=== PATIENT | male | born 1950 | race Two or more races ===

== ENCOUNTER → 2020-10-11 | Outpatient (CLI) | payer MEDICARE | END | disposition home or self-care (01) | LOC: CVU 07:29 | PROVIDERS: ATTEND Internal Medicine Cardiovascular Disease | DX: I08.8 Other rheumatic multiple valve diseases (principal); I25.10 Atherosclerotic heart disease of native coronary artery without angina pectoris; R00.2 Palpitations; R01.1 Cardiac murmur, unspecified | CPT/HCPCS: 75571; 93306; 93356 ==

== ENCOUNTER → 2020-12-13 | Outpatient (CLI) | payer MEDICARE ==
[~2020-12-13] MED LIST: ALLO300T PO; AMLO-211 PO; LOSA100T14 PO; METF500T27 PO; ROSU10TA2 PO
== END | disposition home or self-care (01) ==
LOC: STAR 13:26
PROVIDERS: ATTEND Thoracic Surgery (Cardiothoracic Vascular Surgery)
DX: Z20.822 Contact with and (suspected) exposure to COVID-19 (principal)
CPT/HCPCS: U0003; U0005

== ENCOUNTER → 2021-02-23 | Outpatient (CLI) | payer MEDICARE ==
[~2021-02-23] MED LIST changes: +AMIO200T42 PO; +APIX5TAB PO; +ASPI81TA45 PO; +COLC0.6C3 PO; +DIPH25CA26 PO; +DOCU-131 PO; +GABA300C PO; +INSU100I11 SQ-INSULIN; +METO25TA35 PO; +OMEP-110 PO; +OXYC5TAB98 PO
== END | disposition home or self-care (01) ==
LOC: CVU 15:26
PROVIDERS: ATTEND Registered Nurse
DX: I08.8 Other rheumatic multiple valve diseases (principal); I10 Essential (primary) hypertension
CPT/HCPCS: 93306